=== PATIENT | female | born 1965 | race Caucasian/White ===

== ENCOUNTER 2018-06-01 14:04 | Emergency (ER) | payer MEDICAID ==
[2018-06-01] MEDS: ACETAMINOPHEN 500 MG TAB PO (15:41)
[2018-06-01] MEDS: LIDOCAINE 1%/EPI (MDV) 50 ML INJ INJ (15:52)
== END 2018-06-01 17:35 | disposition home or self-care (01) ==
LOC: FTE 14:04
DX: S01.81XA Laceration without foreign body of other part of head, initial encounter (principal); W01.198A Fall on same level from slipping, tripping and stumbling with subsequent striking against other object, initial encounter; Y92.9 Unspecified place or not applicable
CPT/HCPCS: 12013; 99283-25

== ENCOUNTER 2018-06-03 11:41 | Emergency (ER) | payer MEDICAID | END 2018-06-03 14:00 | disposition home or self-care (01) | LOC: FTE 11:41 | DX: Z48.01 Encounter for change or removal of surgical wound dressing (principal) | CPT/HCPCS: 99281; Z7502 ==